=== PATIENT | male | born 1945 | race Caucasian/White ===

== ENCOUNTER 2016-11-20 06:37 | Day surgery (SDC) | payer MEDICARE ==
[~2016-11-20] VITALS: Ht 172.7 cm; Wt 106.3 kg
[~2016-11-20 06:37] MED LIST: ASPI81TA21 PO; FISH1200 PO; GEMF600T PO; GLIP5 PO; GLUCTAB PO; LISI-360 PO; PLAV75TA PO; ROSU20 PO; TAB-TAB PO
[2016-11-20] MEDS ORDERED: NS 1000P @30 MLS/HR (KVO) IV SCH (07:30)
[2016-11-20 07:31] VITALS: BP 126/79; PULSE 77; RESP 18; TEMP 98.4; O2SAT 95
[2016-11-20] MEDS ORDERED: GEMF600T PO (07:39)
[2016-11-20] MEDS ORDERED: GLIM4TAB PO (07:39)
[2016-11-20] MEDS ORDERED: ASPI1TAB69 PO (07:39)
[2016-11-20] MEDS ORDERED: ATOR40TA16 PO (07:39)
[2016-11-20] MEDS ORDERED: OMEGCAP PO (07:39)
[2016-11-20] MEDS ORDERED: OCUVTAB4 PO (07:39)
[2016-11-20] MEDS ORDERED: METF500T PO (07:39)
[2016-11-20] MEDS ORDERED: MULTTAB67 PO (07:39)
[2016-11-20] MEDS ORDERED: LISI10TA3 PO (07:39)
[2016-11-20] MEDS ORDERED: HEPARIN-NS/PF INJ 500 ML ONE (08:33)
[2016-11-20] MEDS ORDERED: MIDAZOLAM HCL 5 MG/5 ML VIAL ONE (08:34)
[2016-11-20] MEDS ORDERED: HEPARIN SODIUM - IV 10,000 UNITS/10 ML VIAL ONE (08:34)
[2016-11-20] MEDS ORDERED: NITROGLYCERIN INJ 5 ML ONE (08:34)
[2016-11-20] MEDS ORDERED: CLOPIDOGREL 300 MG TAB ONE (10:04)
[2016-11-20] MEDS ORDERED: SODIUM CHLOR 0.9% 250 ML INJ 250 ML IV PRN (10:15)
[2016-11-20] MEDS ORDERED: BACITRACIN OINT 0.9 GM PKT TOP ONE (10:15)
[2016-11-20] MEDS ORDERED: LIDOCAINE HCL 1% 50 ML VIAL INFIL PRN (10:15)
[2016-11-20] MEDS ORDERED: MORPHINE SULFATE 4 MG/ML INJ IV PUSH PRN (10:15)
[2016-11-20] MEDS ORDERED: METOCLOPRAMIDE HCL 10 MG/2 ML VIAL IV PRN (10:15)
[2016-11-20] MEDS ORDERED: oxyCODONE/ACETAMINOPHEN 5 MG/325 MG TAB PO PRN (10:15)
[2016-11-20] MEDS ORDERED: MISC INFORMATION XX ONE (10:15)
[2016-11-20] MEDS ORDERED: ATROPINE SULFATE 1 MG/ML VIAL IV PRN (10:15)
[2016-11-20] MEDS ORDERED: TEMAZEPAM 15 MG CAP PO PRN (10:15)
[2016-11-20] MEDS ORDERED: SODIUM CHLOR 0.9% 1000 ML INJ 1,000 ML IV SCH (10:15)
[2016-11-20] MEDS ORDERED: CLOPIDOGREL 300 MG TAB PO ONE (10:15)
[2016-11-20] MEDS ORDERED: oxyCODONE/ACETAMINOPHEN 10 MG/325 MG TAB PO PRN (10:15)
[2016-11-20] MEDS ORDERED: ACETAMINOPHEN 325 MG TAB PO PRN (10:15)
[2016-11-20] MEDS ORDERED: LORazepam 2 MG/ML VIAL IV PRN (10:15)
[2016-11-20] MEDS ORDERED: ONDANSETRON HCL 4 MG/2 ML VIAL IV PRN (10:15)
--- NOTE | 2016-11-20 10:15 | CATHPROC ---
[employer] HIS Report Study Information Study Number Scheduled Start Study Start [id number] 11/20/2016 Nov 20 2016 8:34AM Referring Institution Admit Source Facility Department 1 Other [facility] - Clinical Faculty Physician and Clinical Staff Initial Gilles [facility] Carola Mas,RN Recorder Amirah Echeverria RCIS TECH2 Scrub Hosterman, Toi,RT(R) X-Ray Debby Baron,RT(R) (BS) Procedures Performed Procedure Location (Site) Vessel Name Abdominal Angiogram Abd Aorta (A3) Aorta Angiogram (manual) Fem Sup. (left) Femoral Art Angiogram (manual) Fem Sup. (right) Femoral Art Angiogram (manual) Popliteal L (L10) Popliteal Angiogram (manual) Popliteal R (R10) Popliteal Angiogram (manual) Tib, Post (Left) Popliteal Angiogram (manual) Tib, Post (right) Popliteal COPY COORDINATOR Fem Sup. (right) Femoral Art Wire insertion Fem Art (left) Femoral Art Equipment Time Attending Urologist Description Size Mfg Part Number Used/Scraped 09:23 GARCIA [employer] WIRE, [facility] 300CM 300CM [id number] Used INTRODUCER SET, [id number]-502-10.0- 09:05 [employer] FR 5 Used MICROPUNCTURE, STIFFENED SC-NT-U-SST 09:07 CORDIS/ JULIO RIM SUPER TORQUE CATHETER FR 5 [id number] Used BALLOON, ADMIRAL IN.PACT 6 X 09:50 [employer] 130CM [id number] Used 120 130CM BALLOON, PACIFIC PLUS 5 X 80 09:36 [employer] 130CM [id number] Used 130CM CATHETER, FR5 TRAILBLAZER 09:14 [employer] 135CM [id number] Used .035 09:07 MALLINCKRODT SYRINGE, ANGIOMAT 150ML 150ML [id number] Used 09:07 [employer] INDUSTRIES PACK, CCL CUSTOM * [id number] Used 09:07 [employer] PACER PEN, SKIN DUAL W/ RULER * [id number] Used 09:14 [employer] 30 FATOU INDEFLATOR [id number] Used PSI-6F-11- 10:01 [employer] SHEATH, FR6.5 PRELUDE 11CM FR 6.5 Used [id number] 09:07 [employer] WIRE, EXCHANGE 260CM 3MMJ 260CM [id number] Used 09:07 NAMIC MANIFOLD, 4 PORT * [id number] Used 09:25 NAMIC TUBING, HIGH PRESSURE 20" 20" [id number] Used 09:07 NAMIC TUBING, HIGH PRESSURE 48" 48" [id number] Used 09:07 [employer] OMNIPAQUE, 300 MG, 100ML 100ML [id number] Used 09:07 [employer] OMNIPAQUE, 300 MG, 100ML 100ML [id number] Used 09:07 [employer] BLANKET,WARM AIR CCL * [id number] Used CATHETER, TURBO ELITE 2.0MM 09:26 [employer] 150CM [id number] Used OTW 09:07 TERUM[employer] SHEATH, FR5 TERUMO (10CM) FR 5 [id number] Used SHEATH, FR6 PINNACLE 09:13 [employer]/JULIO FR 6 [id number] Used DESTINATION 45CM WIRE, ANGLE GLIDE STIFF .035 09:07 [employer]/JULIO 260CM [id number] Used 260CM Equipment Model, Serial, Lot Number and Expiration Data Description Model Number Serial Number Lot Number Expiration Date BALLOON, ADMIRAL IN.PACT 6 X [id number] 03-21-2018 120 130CM INTRODUCER SET, [id number] 10-09-2019 MICROPUNCTURE, STIFFENED SHEATH, FR6.5 PRELUDE 11CM [id number] 08-21-2019 History: Current Medications Medication Dosage/Unit Route Frequency Last Date/Time Taken ASA 81 mg Oral 11/19/2016 Gemfibrozil 4 mg Oral LISINOPRIL 10 mg Oral Glucophage 500 mg Oral History: Allergies Allergy Reaction Niacin History: Risk Factors Family History of Hypertension Dyslipidemia Previous [place] Previous Heart Failure Premature CAD Yes Yes No No No Prior Valve Prior PCI Prior CABG Surgery No No No Cerebrovascular Peripheral Artery Chronic Lung On Dialysis Diabetes Diabetes Therapy Disease Disease Disease No Yes Yes No Yes Oral History: Other Current Smoker Method Quit Packs a Day Years Used Pack Years No Cigarettes 17 Years Ago 2 40 80 Labs Glucose (mg/dl) BUN (mg/dl) Creatinine (mg/dl) BUN:Creatinine (1:x) 60.00-110.00 8.00-20.00 0.10-9.00 10.00-20.00 183 22 1.0 22 Na (meq/l) K (meq/l) Cl (meq/l) CO2 (mmol/L) Ca (mg/dl) 138.00-146.00 3.80-5.10 101.00-111.00 23.00-30.00 9.00-10.50 134 4.7 93 21 9.8 Medication Medication Total Dose (Bolus/Oral) Medication Total Dosage/Unit 1% XYLOCAINE 20 mL FENTANYL 75 mcg HEPARIN 5000 units OXYGEN 2 l/min PLAVIX 600 mg VERSED 3 mg Medications (Bolus/Oral) Medication Time Given Dosage/Unit Administered By Reason VERSED 11/20/2016 8:58:57 AM 2 mg Carola Mas 2 mg VERSED given in lab by Carola Mas RN in Left Hand via Peripheral IV. Ordered by Primo Werner. FENTANYL 11/20/2016 8:59:33 AM 50 mcg Carola Mas 50 mcg FENTANYL given in lab by Carola Mas RN in Left Hand via Peripheral IV. Ordered by Gilles Werner. OXYGEN 11/20/2016 9:01:31 AM 2 l/min Carola Mas 2 l/min OXYGEN given in lab by Carola Mas RN via Nasal. Ordered by Gilles Werner. 1% XYLOCAINE 11/20/2016 9:02:03 AM 20 mL Gilles Werner 20 mL 1% XYLOCAINE given in lab by Gilles Werner in Left Groin via Subcutaneous. Ordered by Neal Werner. HEPARIN 11/20/2016 9:16:54 AM 5000 units Carola Mas 5000 units HEPARIN given in lab by Carola Mas RN in Left Hand via Peripheral IV. Ordered by Gilles Piña. VERSED 11/20/2016 9:32:03 AM 1 mg Carola Mas 1 mg VERSED given in lab by Carola Mas RN in Left Hand via Peripheral IV. Ordered by Primo Werner. FENTANYL 11/20/2016 9:33:21 AM 25 mcg Carola Mas 25 mcg FENTANYL given in lab by Carola Mas RN in Left Hand via Peripheral IV. Ordered by Gilles Werner. PLAVIX 11/20/2016 10:10:09 AM 600 mg Carola Mas 600 mg PLAVIX given in lab by Craola Mas RN via Oral. Ordered by Gilles Werner. Medication (Drip) Medication Time Given Dosage/Unit Concentration/Unit Diluent (ml) Solution IV Solutions 11/20/2016 8:36:59 AM 0 mL (IV) 500 NaCl .9 Patient arrived on IV Solutions given by Carola Mas RN in Left Hand via Peripheral IV. Pump/Dri p Flow = 20 ml/hr using NaCl .9. Initial Case Assessment Cardiovascular HR Rhythm NIBP Chest Pain 80 SR 117/75 0 Circulatory - Right Pulses Dorsalis Pedis Posterior Tibial Femoral 1 1 1 Scale (0,1,2,3,4,d) Circulatory - Left Pulses Dorsalis Pedis Posterior Tibial Femoral 1 1 Scale (0,1,2,3,4,d) Neurological State Oriented to time-place- Alert Moves all extremities person Respiration - General SpO2 (%) 95 Final Case Assessment Cardiovascular HR Rhythm NIBP Chest Pain 70 sr 114/74 0 Circulatory - Right Pulses Dorsalis Pedis Femoral 1 1 Scale (0,1,2,3,4,d) Circulatory - Left Pulses Dorsalis Pedis Femoral 1 1 Scale (0,1,2,3,4,d) Neurological State Oriented to time-place- Alert Moves all extremities person Respiration - General Respiration Rate SpO2 (%) O2 (lpm) (B/min) 18 99 2 Chronological Log Time Study Chronological Log 8:33:58 Patient arrived via Bed. 8:34:00 Patient Name, D.O.B, / Armband Verified By R.N. 8:34:01 Consent signed by the physician and the patient and verified by the Clinical Faculty staff. 8:34:02 Pre-op and post- op instructions given; patient acknowledges understanding of instructions. 8:34:03 Verbal Stimulation=2 Physical Stimulation=2 Airway=2 Respiration=2 TOTAL=8. (0=absent, 1=yanez ited, 2=present) 8:34:18 Presedation assessment performed by Clinical Faculty RN. 8:34:19 Patient has been NPO for More than 6Hrs. 8:34:21 Skin Breakdown-NONE 8:34:23 Ashwini Prominences Protected 8:36:37 A # 20 IV was noted in the Hand (left). Grade = PATENT Patient arrived on IV Solutions given by Carola Mas RN in Left Hand via Peripheral IV. Pum p/Drip Flow = 20 ml/hr 8:36:59 using NaCl .9. 8:37:29 History and physical on the chart or being dictated. Vitals capture started with the following parameters, Patient=Adult, Interval=15 min, Initial Pr oqwbjz=956 mmHg, 8:37:34 Deflation Rate=5 mmHg 8:38:14 HR=78 bpm, ZZDA=996/69 mmhg, SpO2=96.0 %, Pain=0, Niyah=10, Benjamin=2 8:40:07 HR=79 bpm, XXYR=348/73 mmhg, SpO2=96.0 %, Pain=0, Niyah=10, Benjamin=2 8:41:30 Reference ECG taken Assessment: Initial Case, HR=80 BPM, Rhythm=SR, QUPY=422/75 mmhg, Chest Pain=0 Right Pulses: Efrain Ped=1, Post Tib=1, Femoral=1 8:42:31 Left Pulses: Efrain Ped=1, Femoral=1 Neurological: State=Alert, Ox3, CAZARES Respiration: SpO2=95 % 8:42:45 HR=80 bpm, XZNW=311/75 mmhg, SpO2=96.0 %, Pain=0, Niyah=10, Benjamin=2 8:44:07 HR=75 bpm, RJMO=878/73 mmhg, SpO2=94.0 %, Resp=12 B/min, Pain=0, Niyah=10, Benjamin=2 8:46:02 Bilateral groins prepped with 2% chlorhexidine, and draped after a 3 min. waiting time. 8:46:08 HR=75 bpm, SNST=741/72 mmhg, SpO2=94.0 %, Resp=17 B/min, Pain=0, Niyah=10, Benjamin=2 8:48:08 HR=74 bpm, BLZK=166/73 mmhg, SpO2=94.0 %, Resp=11 B/min, Pain=0, Niyah=10, Benjamin=2 8:50:09 HR=75 bpm, HAUK=336/73 mmhg, SpO2=94.0 %, Resp=17 B/min, Pain=0, Niyah=10, Benjamin=2 8:52:10 HR=80 bpm, JEYK=014/78 mmhg, SpO2=93.0 %, Resp=17 B/min, Pain=0, Niyah=10, Benjamin=2 8:53:53 Pressure channel 1 zeroed. 8:54:09 HR=74 bpm, GEOP=630/74 mmhg, SpO2=95.0 %, Resp=11 B/min, Pain=0, Niyah=10, Benjamin=2 8:55:01 MD arrived. 8:56:51 HR=75 bpm, MSDF=087/68 mmhg, SpO2=93.0 %, Resp=13 B/min, Pain=0, Niyah=10, Benjamin=2 8:58:11 HR=97 bpm, REMZ=394/72 mmhg, SpO2=91.0 %, Resp=15 B/min, Pain=0, Niyah=10, Benjamin=2 8:58:57 2 mg VERSED given in lab by Carola Mas, RADHA in Left Hand via Peripheral IV. Ordered by Gilles Swanson. 8:59:33 50 mcg FENTANYL given in lab by Carola Mas, RADHA in Left Hand via Peripheral IV. Ordered by Gilles Werner. 9:00:09 HR=75 bpm, EDEE=367/71 mmhg, SpO2=97.0 %, Resp=20 B/min Time Out. Correct patient, correct procedure,correct physician, power injector loaded or not willow ded with contrast with 9:01:17 surgical team present. Time Out Concurred by , individual staff and ENTERTAINER OR VARIETY ARTIST in procedure 9:01:31 2 l/min OXYGEN given in lab by Carola Mas, RADHA via Nasal. Ordered by Gilles Werner. 9:01:57 Case Start 9:02:03 20 mL 1% XYLOCAINE given in lab by Gilles Werner in Left Groin via Subcutaneous. Ordered by Gilles Werner. 9:02:12 HR=73 bpm, ODDD=801/66 mmhg, SpO2=97 %, Resp=19 B/min 9:04:07 HR=75 bpm, XAHM=166/65 mmhg, SpO2=96.0 %, Resp=21 B/min, Pain=0, Niyah=10, Benjamin=2 9:05:18 Access site was Femoral Artery. Left A INTRODUCER SET, MICROPUNCTURE, STIFFENED FR 5 was advanced into the Fem Art (left) using the P ercutaneous 9:05:30 technique. 9:05:45 A WIRE, EXCHANGE 260CM 3MMJ 260CM was inserted via Fem Art (left). A SHEATH, FR5 TERUMO (10CM) FR 5 was exchanged in the Fem Art (left). This was necessary in orde r to 9:05:55 accomodate a larger catheter. 9:06:10 HR=76 bpm, CUKL=269/62 mmhg, SpO2=96.0 %, Resp=19 B/min, Pain=0, Niyah=10, Benjamin=2 9:08:07 HR=73 bpm, AWWC=207/69 mmhg, SpO2=98.0 %, Resp=18 B/min, Pain=0, Niyah=10, Benjamin=2 A PIGTAIL ANG. INFINITI CATHETER FR 5 was advanced over a wire. OMNIPAQUE, 300 MG, 100ML 100ML w as used 9:08:56 for injections. 9:09:24 Through a PIGTAIL ANG. INFINITI CATHETER FR 5, The Abdominal Aorta was injected with 12 cc's of contrast. 9:10:09 HR=74 bpm, JPQE=634/62 mmhg, SpO2=96.0 %, Resp=17 B/min, Pain=0, Niyah=10, Benjamin=2 Recorded Pressure: AoAbd, HR=79, Condition=Condition 1 9:11:20 (Descending Abdominal Aorta) AoAbd 127/58/85 9:12:08 HR=73 bpm, EODK=106/65 mmhg, SpO2=98.0 %, Resp=15 B/min, Pain=0, Niyah=10, Benjamin=2 After removing the current catheter a RIM SUPER TORQUE CATHETER FR 5 was advanced over a WIRE, A NGLE GLIDE 9:13:27 STIFF .035 260CM 260CM. OMNIPAQUE, 300 MG, 100ML 100ML was used for injections. 9:13:45 Fem Sup. (right) angiogram, manually injected. 9:14:07 HR=76 bpm, PMIF=183/64 mmhg, SpO2=97.0 %, Resp=16 B/min, Pain=0, Niyah=10, Benjamin=2 9:14:42 Popliteal R (R10) angiogram, manually injected. 9:15:26 Tib, Post (right) angiogram, manually injected. 9:15:54 Catheter was removed w/o difficulty A SHEATH, FR6 PINNACLE DESTINATION 45CM FR 6 was exchanged in the Fem Art (left). This was soraya avelar in order 9:16:10 to accomodate a larger catheter. 9:16:12 HR=75 bpm, DGCW=659/65 mmhg, SpO2=98.0 %, Resp=18 B/min, Pain=0, Niyah=10, Benjamin=2 9:16:54 5000 units HEPARIN given in lab by Carola Mas, RN in Left Hand via Peripheral IV. Order ed by Gilles Werner. 9:18:09 HR=75 bpm, RJWU=424/63 mmhg, SpO2=98.0 %, Resp=19 B/min, Pain=0, Niyah=10, Benjamin=2 A CATHETER, FR5 TRAILBLAZER .035 135CM was advanced over a wire up and over to the right. OMNIPA QUE, 300 9:20:06 MG, 100ML 100ML was used for injections. 9:20:10 HR=76 bpm, TPTX=127/65 mmhg, SpO2=97.0 %, Resp=20 B/min, Pain=0, Niyah=10, Benjamin=2 9:20:51 The previous wire was exchanged for a WIRE, Oh My GlassesSLAM 300CM 300CM. 9:22:10 HR=75 bpm, ONZE=446/63 mmhg, SpO2=98.0 %, Resp=18 B/min, Pain=0, Niyah=10, Benjamin=2 9:22:38 Activated Clotting Time Drawn 9:23:06 Catheter was removed w/o difficulty 9:24:09 HR=77 bpm, UKCD=011/63 mmhg, SpO2=98.0 %, Resp=20 B/min, Pain=0, Niyah=10, Benjamin=2 9:26:10 HR=71 bpm, NMPK=771/65 mmhg, SpO2=98.0 %, Resp=18 B/min, Pain=0, Niyah=10, Benjamin=2 A CATHETER, TURBO ELITE 2.0MM OTW 150CM was advanced over a wire. OMNIPAQUE, 300 MG, 100ML 100ML was 9:27:04 used for injections. 9:27:38 ACT (Normal Range 90-180) = 252 9:28:09 HR=74 bpm, WPUF=154/67 mmhg, SpO2=98.0 %, Resp=18 B/min, Pain=0, Niyah=10, Benjamin=2 9:28:30 Passes made with the Turbo Elite Laser catheter in the RSFA. 9:30:08 HR=73 bpm, TTXK=577/70 mmhg, SpO2=98.0 %, Resp=19 B/min, Pain=0, Niyah=10, Benjamin=2 9:32:03 1 mg VERSED given in lab by Carola Mas, RN in Left Hand via Peripheral IV. Ordered by Gilles Swanson. 9:32:11 HR=72 bpm, OWUQ=814/71 mmhg, SpO2=98.0 %, Resp=20 B/min, Pain=0, Niyah=10, Benjamin=2 9:33:02 Vitals capture stopped. Vitals capture started with the following parameters, Patient=Adult, Interval=5 min, Initial Pr narkie=576 mmHg, 9:33:18 Deflation Rate=5 mmHg 9:33:21 25 mcg FENTANYL given in lab by Carola Mas, RN in Left Hand via Peripheral IV. Ordered by Gilles Werner. 9:33:59 HR=66 bpm, KWYP=283/68 mmhg, SpO2=99.0 %, Resp=15 B/min 9:34:01 Catheter was removed w/o difficulty A BALLOON, PACIFIC PLUS 5 X 80 130CM 130CM was inserted over WIREBINDU 300CM 300CM via the 9:34:06 Fem Sup. (right). 9:34:32 In the Fem Sup. (right) a BALLOON, PACIFIC PLUS 5 X 80 130CM 130CM was inflated to 8 atms fo r 60 seconds. 9:35:52 In the Fem Sup. (right) a BALLOON, PACIFIC PLUS 5 X 80 130CM 130CM was inflated to 8 atms fo r 60 seconds. 9:38:52 HR=70 bpm, JGZB=493/69 mmhg, SpO2=98.0 %, Resp=17 B/min, Pain=0, Niyah=10, Benjamin=2 9:41:27 Balloon Removed. A CATHETER, FR5 TRAILBLAZER .035 135CM was advanced over a wire. OMNIPAQUE, 300 MG, 100ML 100ML was 9:41:29 used for injections. 9:42:33 Activated Clotting Time Drawn 9:43:09 The previous wire was exchanged for a WIRE, ANGLE GLIDE STIFF .035 260CM 260CM. 9:43:51 HR=71 bpm, WXAV=738/74 mmhg, SpO2=97.0 %, Resp=19 B/min, Pain=0, Niyah=10, Benjamin=2 9:47:12 Catheter was removed w/o difficulty 9:47:27 ACT (Normal Range 90-180) = 225 A BALLOON, ADMIRAL IN.PACT 6 X 120 130CM 130CM was inserted over WIRE, ANGLE GLIDE STIFF .035 2 60CM 9:48:43 260CM via the Fem Sup. (right). 9:48:52 HR=70 bpm, IBTB=129/69 mmhg, SpO2=98.0 %, Resp=17 B/min A BALLOON, ADMIRAL IN.PACT 6 X 120 130CM 130CM was inserted over WIRE, ANGLE GLIDE STIFF .035 2 60CM 9:52:08 260CM via the Fem Sup. (right). 9:53:07 In the Fem Sup. (right) a BALLOON, ADMIRAL IN.PACT 6 X 120 130CM 130CM was inflated to 8 fatou s for 180 seconds. 9:53:51 HR=69 bpm, FNWQ=662/72 mmhg, SpO2=98.0 %, Resp=18 B/min, Pain=0, Niyah=10, Benjamin=2 9:55:25 Balloon Removed. 9:55:33 Peripheral Vascular Intervention Performed 9:57:19 Sheath pulled back into Abdominal Aorta. 9:57:49 Fem Sup. (left) angiogram, manually injected. 9:58:52 HR=70 bpm, PFDC=124/73 mmhg, SpO2=99.0 %, Resp=19 B/min, Pain=0, Niyah=10, Benjamin=2 9:58:59 Popliteal L (L10) angiogram, manually injected. 9:59:00 Tib, Post (Left) angiogram, manually injected. A SHEATH, FR6.5 PRELUDE 11CM FR 6.5 was exchanged in the Fem Art (right). This was necessary in order to 10:00:45 minimize site leakage. 10:01:02 Case End 10:03:15 In the Fem Art (left) the SHEATH, FR6.5 PRELUDE 11CM FR 6.[address] 10:03:33 Sterile dressing applied to site 10:03:34 No case complications noted. 10:03:36 Cine recording checked. 10:03:38 Bedside Report will be given. Assessment: Final Case, HR=70 BPM, Rhythm=sr, OQRZ=708/74 mmhg, Chest Pain=0 Right Pulses: Efrain Ped=1, Femoral=1 10:03:42 Left Pulses: Efrain Ped=1, Femoral=1 Neurological: State=Alert, Ox3, CAZARES Respiration: Resp=18 B/min, SpO2=99 %, O2=2 lpm 10:03:51 HR=70 bpm, OXKL=837/74 mmhg, SpO2=99.0 %, Resp=17 B/min, Pain=0, Niyah=10, Benjamin=2 10:08:52 HR=68 bpm, WTHH=687/69 mmhg, SpO2=99.0 %, Resp=16 B/min, Pain=0, Niyah=10, Benjamin=2 10:10:09 600 mg PLAVIX given in lab by Carola Mas RN via Oral. Ordered by Gilles Werner. 10:10:34 Patient moved to bed 10:13:42 Patient transported to DOCU End Study - Contrast Media Used In Study Contrast Total Opened (mL) Total Used (mL) Total Wasted (mL) Omnipaque 160 160 0 End Study - Maximum Contrast Load Max Contrast Load (mL) 531.6 End Study - Radiation Exposure Fluoro Time (minutes) 11.8 End Study - Patient Disposition Complications Transferred To No Telemetry Bed
[2016-11-20] MEDS ORDERED: PLAV75TA29 PO (10:18)
--- NOTE | 2016-11-20 10:40 | MA ---
cc: TALA CORDON DATE 11/20/2016 PROCEDURE PERFORMED 1. Fluoroscopy with interpretation 2. Descending aortography 3. Bilateral lower extremity peripheral angiography with first, second, third order visualization interpretation. 4. Laser atherectomy of the right superficial femoral artery. 5. Percutaneous transluminal angioplasty with drug coated balloon of the right superficial femoral artery. METHOD The risks, benefits and alternatives discussed with the patient. The patient understood, consented to the procedure. The patient brought into the catheterization lab and placed on the catheterization table. The left groin was prepped and draped in a sterile fashion. The left groin was anesthetized with 2% lidocaine. The left common femoral artery was cannulated. A 5-Faroese 11 cm sheath was placed without difficulty. DESCENDING AORTOGRAPHY Descending aortography was performed anterior-posterior view using a 24 cc contrast injection with good opacification. Descending aortography revealed mild to moderate eccentric calcification primarily at the bifurcation of the right renal artery. The right renal artery appears to have a 75% proximal stenosis. The left renal artery is widely patent. The remainder of the descending aorta has mild luminal irregularities. PERIPHERAL ANGIOGRAPHY 1. Right common internal, external, iliac arteries have minor luminal irregularities. Right common femoral and profunda arteries are widely patent. Right superficial femoral artery has minor luminal irregularities in the proximal segment. In the mid to distal segment, there is an 80% calcific stenosis just proximal to the prior stent placed. Prior stent appears to be widely patent. The right popliteal has minor luminal irregularities. There is three-vessel runoff below the knee in the right lower extremity, anterior tibial, posterior tibial and peroneal vessels appear to be widely patent. 2. Left internal, external and common iliac arteries have minor luminal irregularities. Left common femoral artery has a 50% eccentric calcific stenosis present in the proximal segment. Left profunda artery is widely patent. The left superficial femoral artery does have a stent present in the mid to distal segment. At the proximal stent, there appears to be a 60-70% stenosis. Just distal to the stent, there also appears to be a 60% stenosis present. Left popliteal artery has minor luminal irregularities. There is three-vessel runoff below the knee left lower extremity. PERCUTANEOUS INTERVENTION A 6-Faroese 45 cm Bueenonacle sheath was advanced up-and-over the arch into the right superficial femoral artery. Heparin was administered throughout the entire procedure to maintain appropriate anticoagulation. A 0.035 inches 260 cm stiff angle Glidewire was then navigated down into the distal posterior tibial artery. A 0.035 inches 135 cm trailblazer catheter was then advanced behind it. The wire was removed. Digital subtraction angiography confirmed intraluminal placement. A 0.014 inches 300 cm [place] wire was then navigated down to the distal posterior tibial artery. A 6-Faroese Excimer laser atherectomy catheter was then prepped. The laser atherectomy device was advanced down to the mid distal right superficial femoral artery. Laser atherectomy was performed on four sequential passes through the mid right superficial femoral artery just to the proximal stent margin. The superficial femoral artery was then predilated with a 5.0 x 80 mm Medtronic balloon to 8 atmospheres. Repeat angiography showed moderate residual stenosis, but ADRYAN-III flow. At this point, we elected to proceed with drug coated balloon angioplasty. A 6.0 x 120 mm Medtronic drug coated balloon was then advanced down to the mid right superficial femoral artery with minimal stent overlap and deployed for prolonged inflation. Repeat angiography showed no significant residual stenosis. Trailblazer catheter was then advanced down into the popliteal artery. Manual pullback confirmed no gradient present. The sheath was then removed and exchanged for a 6-Faroese short sheath to be removed with manual hemostasis. CONCLUSIONS 1. 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 2. Mild to moderate eccentric descending thoracic aorta atherosclerosis with right renal artery stenosis. 3. Moderate left common femoral calcific stenosis. 4. Moderate left superficial femoral artery stent in-stent restenosis. 5. Successful laser atherectomy and balloon angioplasty with a drug coated balloon of the right superficial femoral artery. PLAN The patient will be monitored closely for any post procedural complications. I think that this will translate well with symptomatic improvement in the right lower extremity. The patient does report symptoms in the left lower extremity also. We will review the prior ELIZABETH to see how much reduction in blood flow. The combination of moderate left common femoral and moderate left superficial femoral artery stenosis may be driving his symptoms. We will talk about consideration for staged intervention of the left lower extremity if clinically indicated. MD LIZZETH Wilson/MERYL 10:10 AM /10:25 AM
[2016-11-20] MEDS ORDERED: IOHEXOL 350 MG/ML 100 ML BTL (for Cath Lab) OTHER ONE (15:58)
[2016-11-21] MEDS ORDERED: ASPIRIN 81 MG CHEW TAB PO SCH (09:00)
[2016-11-21] MEDS ORDERED: CLOPIDOGREL 75 MG TAB PO SCH (09:00)
--- NOTE | 2016-11-21 10:18 | EKG ---
Date Performed: 11/20/2016 Time Performed: 07:38:38 PTAGE: 70 years EKG: Sinus rhythm Left axis deviation rSr'(V1) - probable normal variant Inferior infarct - age undetermined QRS jhaveri es V3/V4 may be due to LVH but cannot rule out anterior infarct Low QRS voltages in precordial leads Abnormal ECG PREVIOUS TRACING : 05/01/2013 07.58 DOCTOR: Gilles Werner Interpretating Date/Time 11/21/2016 10:17:05
== END 2016-11-20 18:26 | disposition home or self-care (01) ==
LOC: HCAT 06:37 → HDIC 06:38 → HCAT 18:26
PROVIDERS: ATTEND Internal Medicine
DX: I73.9 Peripheral vascular disease, unspecified (principal); I70.1 Atherosclerosis of renal artery; I70.0 Atherosclerosis of aorta; I10 Essential (primary) hypertension; E78.5 Hyperlipidemia, unspecified; I65.29 Occlusion and stenosis of unspecified carotid artery; Z87.891 Personal history of nicotine dependence; Z01.810 Encounter for preprocedural cardiovascular examination
CPT/HCPCS: 37225; 75625; 75716; 85002; 85347; 86850; 86900; 86901; 93005; C1725; C1751; C1769; C1885; C1887; C1893; C2623; J1644; J2250; J3010; Q9967